=== PATIENT | male | born 1970 | race Caucasian/White ===

== ENCOUNTER 2020-10-01 09:47 | Emergency (ER) | payer OTHER ==
[~2020-10-01 09:47] MED LIST: BENTYL 20MG TAB20 MG PO; BUSPAR 5MG TABLE5 MG PO; MOBIC15 MG PO; ZOFRAN4 MG PO
[2020-10-01 10:22] LABS: HEMOGLOBIN 16.7 gm/dl (14.0-17.5)
[2020-10-01 10:50] LABS: BUN/CREATININE RATIO 17 (0-10)
[2020-10-01] MEDS ORDERED: IBUPROFEN800 MG PO (14:56)
== END 2020-10-01 15:15 | disposition home or self-care (01) ==
LOC: ER1 09:47
PROVIDERS: Emergency Medicine
DX: R55 Syncope and collapse (principal); I10 Essential (primary) hypertension; E11.9 Type 2 diabetes mellitus without complications; Z20.822 Contact with and (suspected) exposure to COVID-19
CPT/HCPCS: 0241U; 70450; 71045; 80053; 81001; 82550; 82553; 83605; 83690; 84484; 85025; 85610; 85730; 93005; 99284; Q9967